=== PATIENT | female | born 1940 | race Caucasian/White ===

== ENCOUNTER → 2017-02-20 | Outpatient (CLI) | payer OTHER | LOC: PET 11:14 | DX: J90 Pleural effusion, not elsewhere classified (principal) ==

== ENCOUNTER → 2017-02-21 | Outpatient (CLI) | payer OTHER ==
--- NOTE | ~2017-02-21 | CNG ---
[facility] [place] [address] CYTO-NONGYN REPORT PROCEDURE Name: MIRTHA ROMERO V Room #: REG [facility] [place].#: [id number] Admission: 02/21/17 Date of : 36 Discharge: Report #: [id number] Path Case #: [id number] CYTOPATHOLOGY REPORT COLLECTION DATE: 02/21/2017 RECEIVED DATE: 02/21/2017 SUBMITTING PHYS: Dr. Stephany Whyte OTHER PHYS: CLINICAL HISTORY: Chest Fluid SPECIMEN(S) RECEIVED: A.Pleural fluid, Chest * * * * * * * * * * * * FINAL DIAGNOSIS: A. Pleural fluid, Chest: - No malignant epithelial cells identified. - Rare scattered mesothelial cells and predominantly chronic inflammation present (see comment). (CLW:pit; 02/25/2017) COMMENT: Properly controlled immunohistochemical stains are performed on the cell block. Block A1: Calretinin - stains rare scattered mesothelial cells. CD68 - highlight numerous histocytes BerEP4 - nonreactive (CLW:pit; 02/25/2017) PATHOLOGIST: Nikkie Churchill M.D. REPORT ELECTRONICALLY SIGNED BY: Nikkie Churchill M.D. DATE/TIME: 02/25/2017 21:11 * * * * * * * * * * * * GROSS PATHOLOGY: A. Pleural fluid, Chest: The specimen is submitted unfixed, labeled "Serene Rojas". Received by the Cytology Department is 16 mL of clear yellow fluid. One ThinPrep slide and a cell block were prepared. (mm 8.3.2017) INSULATION BOARD HEAD SAW OPERATOR(S): YANNA Huddleston([facility] [place]) INITIAL CPT CODE(S): A; 04213, 39487, 50781, 08638, 25263 Professional services performed by [facility] at [facility], [address] [place] [id number]. Technical services performed by [facility] at [address] [place] [address], [address], [place] [address]. [address] [address] CYTO-NONGYN REPORT PROCEDURE Name: MIRTHA ROMERO V Room #: REG NE M.R.#: [id number] Admission: 02/21/17 Date of : 36 Discharge: Report #: [id number] Path Case #: [id number], [address] [place] [address] PHONE: [phone] DIRECTOR: Armani Hurtado M.D. * * * END OF REPORT * * *
[2017-02-21 10:11] LABS: INR 1.1; PROTIME 11.7 Seconds (9.3-11.4)
[2017-02-21 11:44] LABS: COLOR YELLOW; MANUAL DIFF YES; TOTAL VOLUME 60 mL
[2017-02-21 11:45] LABS: CLARITY CLEAR
[2017-02-21 12:15] LABS: BF NUCLEATED CELLS 725; BF RBC 520
[2017-02-21 12:37] LABS: BF MACROPHAGE 24; BF NEUTROPHILS 42
[2017-02-22 11:12] LABS: BODY FLUID ALBUMIN 1.6 g/dL (()); BODY FLUID AMYLASE 14 U/L (()); BODY FLUID GLUCOSE 114 mg/dL (()); BODY FLUID LDH 211 IU/L (()); BODY FLUID PROTEIN 2.5 g/dL (())
== END ==
LOC: ULTRA
PROVIDERS: Internal Medicine
DX: J90 Pleural effusion, not elsewhere classified (principal); J98.11 Atelectasis